=== PATIENT | female | born 1960 | race Two or more races ===

== ENCOUNTER 2018-08-05 02:31 | Emergency (ER) | payer BC, MEDICAID ==
[~2018-08-05] VITALS: Ht 167.6 cm; Wt 82.0 kg
[2018-08-05 04:52] VITALS: BP 136/84
== END 2018-08-05 05:23 | disposition home or self-care (01) ==
LOC: ER 02:31
DX: M25.511 Pain in right shoulder (principal); I10 Essential (primary) hypertension; F12.10 Cannabis abuse, uncomplicated; F17.200 Nicotine dependence, unspecified, uncomplicated; Z98.890 Other specified postprocedural states; Z95.1 Presence of aortocoronary bypass graft; Z91.012 Allergy to eggs; Z91.011 Allergy to milk products; Z88.6 Allergy status to analgesic agent
CPT/HCPCS: 99281